=== PATIENT | male | born 1975 | race Caucasian/White ===

== ENCOUNTER 2025-04-13 11:50 | Inpatient (IN) | payer MEDICAID ==
[~2025-04-13] VITALS: Ht 167.6 cm; Wt 82.6 kg
[2025-04-13 13:14] LABS: HEMATOCRIT. 41.4 % (42.0-52.0); HEMOGLOBIN. 13.8 g/dL (14.0-18.0); MEAN PLATELET VOLUME 8.9 fl (7.4-10.4); PLATELET 228 x1000/uL (130-400); RED BLOOD CELL COUNT 4.16 mill/uL (4.7-6.1); RED CELL DISTRIBUTION WIDTH 12.7 % (11.6-14.6)
[2025-04-13] MEDS: PIPERACILLIN/TAZO 3.375G/50ML 50 ML IV ONE (13:22)
[2025-04-13] MEDS: SODIUM CHLORIDE 0.9% (SEPSIS BOLUS) IV ONE (13:22)
[2025-04-13 13:31] LABS: CREATININE 1.0 mg/dL (0.6-1.3)
[2025-04-13 13:32] LABS: UREA NITROGEN BLOOD 15 mg/dL (9-23)
[2025-04-13 13:33] LABS: INR 0.9
[2025-04-13 13:33] LABS: ASPARTATE AMINOTRANSFERASE 19 IU/L (<34)
[2025-04-13 13:34] LABS: BILIRUBIN DIRECT 0.3 mg/dL (<=3.0); BILIRUBIN TOTAL 0.8 mg/dL (0.1-1.0); PROTEIN TOTAL 7.9 g/dL (6.0-8.3)
[2025-04-13] MEDS: VANCOMYCIN 1G PREMIX 200 ML IV ONE (14:00)
[2025-04-13 14:33] LABS: BAND% 9.0 % (1.0-6.0); LYMPHOCYTES % MANUAL 5.0 % (20.0-50.0); MONOCYTES % MANUAL 12.0 % (2.0-8.0); NEUTROPHILS % MANUAL 74.0 % (45.0-75.0); PLATELET ESTIMATE NORMAL
[2025-04-13] MEDS ORDERED: DEXTROSE 50% WATER 50ML SYRINGE IV PRN (17:00)
[2025-04-13] MEDS ORDERED: LORAZEPAM 2MG/ML UD SYRINGE IV PRN (17:00)
[2025-04-13] MEDS: BLOOD SUGAR DIAGNOSTIC STRIP TEST SCH (17:10)
[2025-04-13] MEDS: INSULIN GLARGINE 100 UNITS/ML SUBCUT SCH (17:37)
[2025-04-13] MEDS: CEFTRIAXONE 2GM/50ML 50 ML IV SCH (17:47)
[2025-04-13 20:00] VITALS: BP 107/54; PULSE 87; RESP 18; TEMP 37; O2SAT 97
[2025-04-13 23:00] VITALS: BP 140/75; PULSE 87; RESP 18; TEMP 35.9176
[2025-04-13] MEDS: INSULIN LISPRO 100 UNITS/ML SUBCUT SCH (23:04)
[2025-04-14] VITALS: PULSE 86; RESP 16; TEMP 36.4; O2SAT 97
[2025-04-14] MEDS: VANCOMYCIN 1GM/200ML PMX (BAXTER) IV SCH (00:49)
[2025-04-14 04:00] VITALS: BP 115/59; PULSE 82; RESP 17; TEMP 36.9; O2SAT 100
[2025-04-14] MEDS ORDERED: POLYMYXIN B SULFATE 500000 UNITS/VIAL ONE ×2 (06:40→07:03)
[2025-04-14] MEDS ORDERED: LIDOCAINE HCL 1% 10 MG/ML 10ML VIAL ONE (06:40)
[2025-04-14] MEDS ORDERED: BUPIVACAINE HCL/PF 0.5% (5MG/ML) 10ML ONE (06:40)
[2025-04-14] MEDS ORDERED: DEXAMETHASONE 4MG/ML 1ML VIAL ONE (07:20)
[2025-04-14] MEDS ORDERED: LIDOCAINE HCL 1% 20ML VIAL ONE (07:20)
[2025-04-14] MEDS ORDERED: ONDANSETRON HCL 4MG/2ML INJ ONE (07:20)
[2025-04-14] MEDS ORDERED: FENTANYL CITRATE/PF 50MCG/ML 2ML VIAL ONE (07:21)
[2025-04-14] MEDS ORDERED: PROPOFOL 200MG/20ML VIAL IV ONE (07:21)
[2025-04-14] MEDS ORDERED: FENTANYL CITRATE/PF 50MCG/ML 2ML VIAL IV PRN (07:45)
[2025-04-14] MEDS ORDERED: HYDRALAZINE 20MG/ML VIAL IV PRN (07:45)
[2025-04-14] MEDS ORDERED: LABETALOL 5MG/ML 4ML INJ IV PRN (07:45)
[2025-04-14] MEDS ORDERED: ONDANSETRON HCL 4MG/2ML INJ IV PRN (07:45)
[2025-04-14] MEDS ORDERED: HYDROMORPHONE HCL/PF 1MG/ML INJ IV PRN (07:45)
[2025-04-14] MEDS ORDERED: ALBUTEROL (0.083%) 2.5MG/3ML NEB ONE (08:46)
[2025-04-14 08:54] VITALS: PULSE 87; RESP 24; O2SAT 97
[2025-04-14] MEDS: ALBUTEROL (0.083%) 2.5MG/3ML NEB HHN SCH (08:54)
[2025-04-14] MEDS ORDERED: CEFTRIAXONE 2GM/50ML 50 ML IV SCH (17:00)
[2025-04-14 20:00] VITALS: BP 125/71; PULSE 85; RESP 20; TEMP 36.7; O2SAT 98
[2025-04-14] MEDS: CEFTRIAXONE 2GM/50ML 50 ML IV SCH (21:40)
[2025-04-15] VITALS: BP 143/81; PULSE 80; RESP 20; TEMP 36.6; O2SAT 100
[2025-04-15 04:00] VITALS: BP 145/87; PULSE 82; RESP 19; TEMP 36.4; O2SAT 99
[2025-04-15 06:19] LABS: BASOPHILS % 0.1 % (0.0-2.0); EOSINOPHILS % 0.1 % (0.0-5.0); HEMATOCRIT. 37.8 % (42.0-52.0); HEMOGLOBIN. 13.1 g/dL (14.0-18.0); LYMPHOCYTES % 7.7 % (20.0-50.0); MEAN PLATELET VOLUME 8.5 fl (7.4-10.4); MONOCYTES % 8.4 % (2.0-8.0); NEUTROPHILS % 83.7 % (40.0-76.0); PLATELET 226 x1000/uL (130-400); RED BLOOD CELL COUNT 3.86 mill/uL (4.7-6.1); RED CELL DISTRIBUTION WIDTH 12.7 % (11.6-14.6)
[2025-04-15 06:31] LABS: CREATININE 0.6 mg/dL (0.6-1.3)
[2025-04-15 06:32] LABS: UREA NITROGEN BLOOD 13 mg/dL (9-23)
[2025-04-15 06:34] LABS: PHOSPHORUS 1.9 mg/dL (2.5-4.9)
[2025-04-15 08:00] VITALS: BP 148/82; PULSE 84; RESP 19; TEMP 36.4; O2SAT 99
[2025-04-15] MEDS: SODIUM PHOSPHATE 15 MMOL in DEXT 5% WATER 245 ML IV NR (09:00)
[2025-04-15 12:00] VITALS: BP 135/71; PULSE 85; RESP 18; TEMP 36.7; O2SAT 100
[2025-04-15] MEDS: MAGNESIUM 2 G PREMIX 50 ML IV NR (13:45)
[2025-04-15 16:00] VITALS: BP 128/78; PULSE 81; RESP 18; TEMP 36.7; O2SAT 99
[2025-04-15 20:00] VITALS: BP 117/61; PULSE 79; RESP 20; TEMP 37; O2SAT 98
[2025-04-15] MEDS: ENOXAPARIN 40MG/0.4ML SYR SUBCUT SCH (21:55)
[2025-04-16] VITALS: BP 135/79; PULSE 83; RESP 19; TEMP 36.5; O2SAT 100
[2025-04-16 04:00] VITALS: BP 129/61; PULSE 82; RESP 17; TEMP 36.8; O2SAT 100
[2025-04-16 08:00] VITALS: BP 154/86; PULSE 80; RESP 18; TEMP 37.7; O2SAT 100
[2025-04-16] MEDS: LACTULOSE 20G/30ML UDC PO NR (09:03)
[2025-04-16 12:00] VITALS: BP 152/71; PULSE 87; RESP 19; TEMP 36.9; O2SAT 99
[2025-04-16 16:00] VITALS: BP 144/75; PULSE 88; RESP 18; TEMP 37.7; O2SAT 98
[2025-04-16 20:00] VITALS: BP 141/69; PULSE 91; RESP 18; TEMP 36.7; O2SAT 95; O2SAT 99
[2025-04-17] VITALS: BP_SYST 152; BP_SYST 156; BP_DIAS 70; BP_DIAS 76; PULSE 81; RESP 19; TEMP 37.2; O2SAT 99
[2025-04-17 04:00] VITALS: BP 120/40; PULSE 91; RESP 19; TEMP 36.7; O2SAT 98
[2025-04-17] MEDS: ONDANSETRON HCL 4MG/2ML INJ IV PRN (06:18)
[2025-04-17 08:00] VITALS: BP 147/82; PULSE 92; RESP 18; TEMP 37; O2SAT 99
[2025-04-17 12:00] VITALS: BP 159/83; PULSE 83; RESP 18; TEMP 36.9; O2SAT 99
[2025-04-17 16:00] VITALS: BP 152/79; PULSE 89; RESP 18; TEMP 38; O2SAT 99
[2025-04-17 20:00] VITALS: BP 132/75; PULSE 94; RESP 18; TEMP 36.8; O2SAT 100
[2025-04-18] VITALS: BP 120/40; PULSE 91; RESP 19; TEMP 36.7; O2SAT 99
[2025-04-18 04:00] VITALS: BP 120/40; PULSE 91; RESP 19; TEMP 36.7; O2SAT 99
[2025-04-18 08:00] VITALS: BP 121/68; PULSE 92; RESP 18; TEMP 36.4; O2SAT 97
[2025-04-18] MEDS ORDERED: AMOX1TAB16 MT (11:24)
[2025-04-18 12:00] VITALS: BP 145/77; PULSE 87; RESP 17; TEMP 36.4; O2SAT 99
[2025-04-18 16:00] VITALS: BP 164/85; PULSE 97; RESP 18; TEMP 36.1; O2SAT 97
[2025-04-18 16:47] VITALS: BP 164/85; PULSE 97; RESP 17; TEMP 97
== END 2025-04-18 20:30 | disposition home health service (06) | DRG 710 ==
LOC: ER 11:50 → 6EST 15:36 → EDBEDREQ 15:44 → EDBEDREQSVC 15:44 → EDBEDREQTM 15:44
PROVIDERS: ADMIT Student in an Organized Health Care Education/Training Program; ATTEND Student in an Organized Health Care Education/Training Program
PROC: 0Y6V0Z0 Detachment at Right 4th Toe, Complete, Open Approach (ICD-10-PCS; principal; 2025-04-14)
DX: A41.9 Sepsis, unspecified organism (principal); E11.52 Type 2 diabetes mellitus with diabetic peripheral angiopathy with gangrene; L02.611 Cutaneous abscess of right foot; E87.1 Hypo-osmolality and hyponatremia; E11.621 Type 2 diabetes mellitus with foot ulcer; L03.031 Cellulitis of right toe; L97.519 Non-pressure chronic ulcer of other part of right foot with unspecified severity; F41.9 Anxiety disorder, unspecified; E11.65 Type 2 diabetes mellitus with hyperglycemia; Z79.4 Long term (current) use of insulin
CPT/HCPCS: 36415; 71045; 73630; 80048; 80076; 80202; 82550; 82962; 83036; 83605; 83735; 84100; 84145; 85025; 87070; 87075; 87076; 87077; 87186; 88304; 88311; 93005; 93970; 94070; 94640; 94664; 96365; 96368; 96372; 97022; 97116; 97162; 97166; 97530; 99285; A4606; A6449; J0665; J0696; J1100; J1650; J1815; J2003; J2405; J2543; J2704; J3010; J3373; J3475; J3490; J7030; J7060